=== PATIENT | male | born 1985 | race American Indian/Alaskan Native ===

== ENCOUNTER 2017-11-02 17:12 | Emergency (ER) | payer OTHER ==
[2017-11-02] MEDS ORDERED: NACL 0.9% 1000 ML 1,000 ML IV ONE (17:50)
[2017-11-02 18:12] LABS: Hematocrit 43.1 % (35.5-45.6); Hemoglobin 14.1 gm/dl (11.8-15.2); Mean Corpuscular HGB Conc 33 % (32-34); Mean Corpuscular Hemoglobin 28 pg (28-32); Mean Corpuscular Volume 85 fl (84-94); Platelet Count 246 K/mm3 (140-440); Red Blood Count 5.11 M/mm3 (3.65-5.03); Red Cell Distribution Width 13.2 % (13.2-15.2); White Blood Count 6.1 K/mm3 (4.5-11.0)
[2017-11-02 18:25] LABS: INR 1.13 (0.87-1.13); Partial Thromboplastin Time 33.9 Sec. (24.2-36.6)
[2017-11-02 18:41] LABS: Alanine Aminotransferase 12 units/L (7-56); Albumin 4.2 g/dL (3.9-5); Albumin/Globulin Ratio 1.1 %; Alkaline Phosphatase 70 units/L (35-129); Anion Gap 16 mmol/L; BUN/Creatinine Ratio 8; Blood Urea Nitrogen 9 mg/dL (9-20); Calcium 9.8 mg/dL (8.4-10.2); Carbon Dioxide 26 mmol/L (22-30); Chloride 97.5 mmol/L (98-107); Glucose 82 mg/dL (75-100); Lipase 26 units/L (13-60); Potassium 3.9 mmol/L (3.6-5.0); Sodium 136 mmol/L (137-145); Total Protein 7.9 g/dL (6.3-8.2)
[2017-11-02 19:48] LABS: Blastocytes % (Manual) 0 %
[2017-11-02 19:49] LABS: Diff Status Complete; Elliptocytes 1+
[2017-11-02] MEDS ORDERED: HEPARIN ONE (20:44)
[2017-11-03] MEDS ORDERED: NACL 0.9% 1000 ML 1,000 ML ONE (00:53)
[2017-11-03] MEDS ORDERED: PROTONIX IV ONE (01:48)
[2017-11-03] MEDS ORDERED: ALUM-MAG HYDROX-SIMETH 200-200-20MG/5ML PO ONE (01:48)
--- NOTE | 2017-11-03 01:53 | Emergency Department Report ---
ED Abdominal Pain HPI - General Chief Complaint: GI Bleed Stated Complaint: BLOOD IN STOOL Time Seen by Provider: 11/03/17 01:40 Source: patient Mode of arrival: Ambulatory Limitations: No Limitations - History of Present Illness Initial Comments: Patient is 32 years old male with no significant past medical history came with his epigastric pain has been going on for a month that since yesterday he had one episode of bloody bowel movement. Patient stated that he noticed this pain is worse when he eats spicy food. Pain relieved with antacids medication. Patient denied any vomiting blood or passing dark stool. MD Complaint: abdominal pain -: month(s) Location: epigastric Radiation: none Severity scale (0 -10): 10 Quality: burning Consistency: intermittent Worsens With: eating Associated Symptoms: denies other symptoms, hematochezia. denies: hematemesis - Related Data Home Medications Medication Instructions Recorded Confirmed Last Taken No Known Home Medications [No 11/03/17 11/03/17 Unknown Reported Home Medications] Allergies Allergy/AdvReac Type Severity Reaction Status Date / Time No Known Allergies Allergy Verified 11/02/17 17:50 ED Review of Systems ROS: Stated complaint: BLOOD IN STOOL Other details as noted in HPI Comment: All other systems reviewed and negative Constitutional: denies: chills, fever Respiratory: denies: cough, shortness of breath, SOB with exertion, SOB at rest Cardiovascular: denies: chest pain, palpitations, dyspnea on exertion Gastrointestinal: abdominal pain. denies: nausea, vomiting, diarrhea, constipation, hematemesis Musculoskeletal: denies: back pain Skin: denies: rash, lesions Neurological: denies: headache, weakness ED Past Medical Hx - Past Medical History Previous Medical History?: No - Surgical History Past Surgical History?: No - Social History Smoking Status: Current Every Day Smoker Substance Use Type: Alcohol - Medications Home Medications: Home Medications Medication Instructions Recorded Confirmed Last Taken Type No Known Home Medications [No 11/03/17 11/03/17 Unknown History Reported Home Medications] ED Physical Exam - General Limitations: No Limitations General appearance: alert, in no apparent distress - Head Head exam: Present: normocephalic - Eye Eye exam: Present: normal appearance, PERRL - ENT ENT exam: Present: normal exam, normal orophraynx - Neck Neck exam: Present: normal inspection, full ROM. Absent: tenderness, meningismus, lymphadenopathy - Respiratory Respiratory exam: Present: normal lung sounds bilaterally. Absent: respiratory distress, wheezes, rales, rhonchi, chest wall tenderness - Cardiovascular Cardiovascular Exam: Present: regular rate, normal rhythm, normal heart sounds - GI/Abdominal GI/Abdominal exam: Present: soft, tenderness (epigastric), normal bowel sounds. Absent: distended, guarding, rebound, rigid, diminished bowel sounds, organomegaly, mass, bruit, pulsatile mass, hernia - Rectal Rectal exam: Present: deferred - Extremities Exam Extremities exam: Present: normal inspection, full ROM, normal capillary refill - Back Exam Back exam: Present: normal inspection - Neurological Exam Neurological exam: Present: alert, oriented X3, CN II-XII intact, normal gait - Skin Skin exam: Present: warm, intact, normal color. Absent: cyanosis, diaphoretic, erythema ED Course Vital Signs 11/02/17 11/02/17 11/03/17 17:47 22:44 00:54 Temperature 98.7 F 98.1 F Pulse Rate 59 L 53 L Respiratory 16 18 18 Rate Blood Pressure 101/83 122/60 O2 Sat by Pulse 99 100 100 Oximetry - Reevaluation(s) Reevaluation #1: 11/03/17 01:53 Patient did not have any bloody bowel movement in the ER. ED Medical Decision Making - Lab Data Result diagrams: 11/02/17 17:51 11/02/17 17:51 Critical care attestation.: If time is entered above; I have spent that time in minutes in the direct care of this critically ill patient, excluding procedure time. ED Disposition Clinical Impression: GI bleed, Abdominal pain, Gastritis Disposition: -01 TO HOME OR SELFCARE Is pt being admited?: No Condition: Stable Instructions: Gastritis (ED), Diet for Ulcers and Gastritis (ED) Referrals: PRIMARY CARE, [Primary Care Provider] - 3-5 Days
[2017-11-03 02:34] VITALS: BP 111/73
== END 2017-11-03 02:34 | disposition home or self-care (01) ==
LOC: ED 17:12
DX: K92.2 Gastrointestinal hemorrhage, unspecified (principal); F17.200 Nicotine dependence, unspecified, uncomplicated
CPT/HCPCS: 36415; 80053; 83690; 85007; 85025; 85610; 85730; 86850; 86900; 86901; 93005; 93010; 96361; 96374; 99284; C9113; J1644; J7030

== ENCOUNTER 2018-06-10 18:04 | Emergency (ER) | payer SELFPAY ==
[2018-06-10] MEDS ORDERED: TYLENOL ONE (18:22)
[2018-06-10 18:24] VITALS: BP 115/76
[2018-06-10] MEDS ORDERED: TYLENOL PO ONE (18:24)
== END 2018-06-11 00:10 | disposition left against medical advice (07) ==
LOC: ED 18:04
DX: K08.89 Other specified disorders of teeth and supporting structures (principal); R51 Headache; Z53.21 Procedure and treatment not carried out due to patient leaving prior to being seen by health care provider

== ENCOUNTER 2018-07-25 20:33 | Emergency (ER) | payer SELFPAY ==
[2018-07-25 21:47] VITALS: BP 137/77
[2018-07-26] MEDS ORDERED: CIPRODEX AD ONE (00:23)
[2018-07-26] MEDS ORDERED: MOTRIN PO ONE (00:24)
--- NOTE | 2018-07-26 00:29 | Emergency Department Report ---
ED ENT HPI - General Chief complaint: Earache Stated complaint: EAR BLEEDING Time Seen by Provider: 07/25/18 23:47 Source: patient Mode of arrival: Ambulatory Limitations: No Limitations - History of Present Illness Initial comments: 33-year-old -[place] male presents with emergency room for right ear pain 2-3 weeks. Patient reports that today he had onset of bleeding. Patient reports is leaking water for the last 2-3 weeks. Turned yellowish then it started to bleed today. Patient reports that he is here and muffled to the right ear. Patient denies any injury but reports that he went swimming 2-3 weeks ago. She reports that he has a history of swimmer's ear. He reports that there is ear pain. Foul discharge coming from the right ear. Patient reports he has not taken any pain for the discomfort. He also reports that he has bilateral lower third molars that have just broken apart. He complains of gingiva swelling and tooth pain. She reports no past medical history currently takes no medications on a daily basis and has no known drug allergies. MD complaint: ear pain -: week(s) (3) Location: R ear Severity: severe Severity scale (0 -10): 8 Quality: aching Consistency: constant Improves with: none Context- Ear: recent swimming Associated Symptoms: gum swelling, hearing loss, discharge from ear - Related Data Previous Rx's Medication Instructions Recorded Last Taken Type Esomeprazole Magnesium [NexIUM] 40 mg PO QDAY #30 capsule. 11/03/17 Unknown Rx Sucralfate 1 gm PO TID #120 tablet 11/03/17 Unknown Rx Amoxicillin [Amoxicillin TAB] 875 mg PO BID #20 tablet 07/26/18 Unknown Rx Ibuprofen [Motrin 600 MG tab] 600 mg PO ONCE #15 tablet 07/26/18 Unknown Rx Allergies Allergy/AdvReac Type Severity Reaction Status Date / Time No Known Allergies Allergy Verified 11/02/17 17:50 ED Dental HPI - General Chief complaint: Earache Stated complaint: EAR BLEEDING Time Seen by Provider: 07/25/18 23:47 Source: patient Mode of arrival: Ambulatory Limitations: No Limitations - Related Data Previous Rx's Medication Instructions Recorded Last Taken Type Esomeprazole Magnesium [NexIUM] 40 mg PO QDAY #30 capsule. 11/03/17 Unknown Rx Sucralfate 1 gm PO TID #120 tablet 11/03/17 Unknown Rx Amoxicillin [Amoxicillin TAB] 875 mg PO BID #20 tablet 07/26/18 Unknown Rx Ibuprofen [Motrin 600 MG tab] 600 mg PO ONCE #15 tablet 07/26/18 Unknown Rx Allergies Allergy/AdvReac Type Severity Reaction Status Date / Time No Known Allergies Allergy Verified 11/02/17 17:50 ED Review of Systems ROS: Stated complaint: EAR BLEEDING Other details as noted in HPI Comment: All other systems reviewed and negative Constitutional: denies: chills, fever ENT: ear pain, dental pain, other (purulent , bloody discharge from right ear) ED Past Medical Hx - Past Medical History Previous Medical History?: No - Surgical History Past Surgical History?: No - Social History Smoking Status: Never Smoker Substance Use Type: None - Medications Home Medications: Home Medications Medication Instructions Recorded Confirmed Last Taken Type Esomeprazole Magnesium [NexIUM] 40 mg PO QDAY #30 capsule. 11/03/17 Unknown Rx Sucralfate 1 gm PO TID #120 tablet 11/03/17 Unknown Rx Amoxicillin [Amoxicillin TAB] 875 mg PO BID #20 tablet 07/26/18 Unknown Rx Ibuprofen [Motrin 600 MG tab] 600 mg PO ONCE #15 tablet 07/26/18 Unknown Rx ED Physical Exam - General Limitations: No Limitations General appearance: alert, in no apparent distress - Head Head exam: Present: atraumatic, normocephalic - Eye Eye exam: Present: EOMI - Expanded ENT Exam Expanded TM/Canal exam: Erythema: Right TM, Canal Discharge: Right TM, Canal Tenderness: Right TM Mouth exam: Present: other (right lower jaw tenderness) Teeth exam: Present: dental tenderness # (32,17), gingival enlargement - Neck Neck exam: Present: normal inspection, full ROM. Absent: lymphadenopathy ED Course Vital Signs 07/25/18 21:41 Temperature 98.3 F Pulse Rate 72 Respiratory 18 Rate Blood Pressure 137/77 O2 Sat by Pulse 98 Oximetry - Procedure Description Procedures done: Ear wick placed in right ear with Ciprodex antibiotic drops. Patient tolerated it well ED Medical Decision Making - Medical Decision Making Patient has been evaluated by this provider fast track. Ibuprofen order for pain management Ciprodex has been ordered for pharmacy will place an ear wick in the right ear. Would discharge patient with continuing of the Ciprodex that would be given to the patient from pharmacy as well as amoxicillin for dental abscess. We'll discharge patient with ibuprofen 600 mg every 8 hours as needed for pain. Referral for dentist. H and verbalized understanding Critical care attestation.: If time is entered above; I have spent that time in minutes in the direct care of this critically ill patient, excluding procedure time. ED Disposition Clinical Impression: Dental abscess Otitis externa of right ear Qualifiers: Otitis externa type: swimmer's ear Chronicity: acute Qualified Code(s): H60.331 - Swimmer's ear, right ear Disposition: DC-01 TO HOME OR SELFCARE Is pt being admited?: No Does the pt Need Aspirin: No Condition: Stable Instructions: Dental Abscess (ED), Otitis Externa (ED) Additional Instructions: Complete oral antibiotics as prescribed. Please use 4 drops to right ear twice a day for 7 days with the Ciprodex that has been given to you from the ER.. Please follow-up with the dentist I have given you a handout of several dentists. Take pain medication as needed. Prescriptions: Amoxicillin [Amoxicillin TAB] 875 mg PO BID #20 tablet Ibuprofen [Motrin 600 MG tab] 600 mg PO ONCE #15 tablet Referrals: PRIMARY CARE, [Primary Care Provider] - 3-5 Days Forms: Work/School Release Form(ED)
== END 2018-07-26 01:27 | disposition home or self-care (01) ==
LOC: ED 20:33
DX: H60.331 Swimmer's ear, right ear (principal); K04.7 Periapical abscess without sinus
CPT/HCPCS: 99283

== ENCOUNTER 2021-01-07 06:28 | Emergency (ER) | payer SELFPAY ==
[2021-01-07 07:40] LABS: Basophils # (Auto) 0.1 K/mm3 (0.0-0.1); Basophils % (Auto) 0.8 % (0.0-1.8); Eosinophils # (Auto) 0.2 K/mm3 (0.0-0.4); Eosinophils % (Auto) 2.8 % (0.0-4.3); Hematocrit 45.5 % (35.5-45.6); Lymphocytes # (Auto) 2.5 K/mm3 (1.2-5.4); Lymphocytes % (Auto) 36.3 % (13.4-35.0); Mean Corpuscular HGB Conc 33 % (32-34); Mean Corpuscular Volume 85 fl (84-94); Monocytes # (Auto) 0.7 K/mm3 (0.0-0.8); Monocytes % (Auto) 10.4 % (0.0-7.3); Platelet Count 275 K/mm3 (140-440); Red Blood Count 5.35 M/mm3 (3.65-5.03); Red Cell Distribution Width 12.9 % (13.2-15.2)
[2021-01-07 07:53] LABS: Alanine Aminotransferase 14 units/L (7-56); Albumin 4.6 g/dL (3.9-5); BUN/Creatinine Ratio 7; Blood Urea Nitrogen 8 mg/dL (9-20); Calcium 9.9 mg/dL (8.4-10.2); Hemolysis Index 31
[2021-01-07 08:46] VITALS: BP 125/75
--- NOTE | 2021-01-07 08:59 | Emergency Department Report ---
ED General Adult HPI - General Chief complaint: Abdominal Pain Stated complaint: ABD PAIN,EAR INFECTION Time Seen by Provider: 01/07/21 08:51 Source: patient Mode of arrival: Ambulatory Limitations: No Limitations - History of Present Illness Initial comments: 35-year-old states my right ear "smells like a body. I know it is infected." He has had symptoms of right ear discomfort and odor for 3 weeks. He has not sought medical attention. He states that his abdominal pain is chronic and secondary to "reflux". He states he has been previously told to take Nexium which he does not. He states the abdominal pain was precipitated by eating a pizza last week. He does not complain of diarrhea. He has had no signs of hematemesis or melena. He denies fever or chills. He does admit to drinking alcohol prior to his abdominal discomfort as well. -: Gradual, week(s) Location: abdomen (Epigastric), right (Here) Radiation: non-radiation Severity scale (0 -10): 0 Quality: aching Consistency: intermittent Improves with: none Worsens with: none Associated Symptoms: denies other symptoms Treatments Prior to Arrival: none - Related Data Previous Rx's Medication Instructions Recorded Last Taken Type Esomeprazole Magnesium [NexIUM] 40 mg PO QDAY #30 capsule. 11/03/17 Unknown Rx Sucralfate 1 gm PO TID #120 tablet 11/03/17 Unknown Rx Amoxicillin [Amoxicillin TAB] 875 mg PO BID #20 tablet 07/26/18 Unknown Rx Ibuprofen [Motrin 600 MG tab] 600 mg PO ONCE #15 tablet 07/26/18 Unknown Rx Lansoprazole [Prevacid] 15 mg PO BID #30 cap 01/07/21 Unknown Rx Sulfamethoxazole/Trimethoprim 1 each PO BID #14 tablet 01/07/21 Unknown Rx [Bactrim DS TAB] Allergies Allergy/AdvReac Type Severity Reaction Status Date / Time No Known Allergies Allergy Verified 11/02/17 17:50 ED Review of Systems ROS: Stated complaint: ABD PAIN,EAR INFECTION Other details as noted in HPI Constitutional: denies: chills, fever Eyes: as per HPI. denies: eye pain, eye discharge, vision change ENT: denies: ear pain, throat pain Respiratory: wheezing. denies: cough, shortness of breath Cardiovascular: denies: chest pain, palpitations Endocrine: no symptoms reported Gastrointestinal: abdominal pain, vomiting (Vomited once last week). denies: nausea, diarrhea, hematemesis, melena, hematochezia Genitourinary: denies: urgency, dysuria Musculoskeletal: denies: back pain, joint swelling, arthralgia Skin: denies: rash, lesions Neurological: denies: headache, weakness, paresthesias Psychiatric: denies: anxiety, depression Hematological/Lymphatic: denies: easy bleeding, easy bruising ED Past Medical Hx - Past Medical History Previous Medical History?: No - Surgical History Past Surgical History?: No - Social History Smoking Status: Current Every Day Smoker Substance Use Type: Alcohol - Medications Home Medications: Home Medications Medication Instructions Recorded Confirmed Last Taken Type Esomeprazole Magnesium [NexIUM] 40 mg PO QDAY #30 capsule.dr 11/03/17 Unknown Rx Sucralfate 1 gm PO TID #120 tablet 11/03/17 Unknown Rx Amoxicillin [Amoxicillin TAB] 875 mg PO BID #20 tablet 07/26/18 Unknown Rx Ibuprofen [Motrin 600 MG tab] 600 mg PO ONCE #15 tablet 07/26/18 Unknown Rx Lansoprazole [Prevacid] 15 mg PO BID #30 cap 01/07/21 Unknown Rx Sulfamethoxazole/Trimethoprim 1 each PO BID #14 tablet 01/07/21 Unknown Rx [Bactrim DS TAB] ED Physical Exam - General Limitations: No Limitations General appearance: alert, in no apparent distress - Head Head exam: Present: atraumatic, normocephalic - Eye Eye exam: Present: normal appearance - ENT ENT exam: Present: mucous membranes moist, other (Left TM normal, right TM cloudy slightly bulging) - Neck Neck exam: Present: normal inspection. Absent: tenderness, meningismus - Respiratory Respiratory exam: Present: normal lung sounds bilaterally. Absent: respiratory distress - Cardiovascular Cardiovascular Exam: Present: regular rate, normal rhythm. Absent: systolic murmur, diastolic murmur, rubs, gallop - GI/Abdominal GI/Abdominal exam: Present: soft, normal bowel sounds. Absent: distended, tenderness, guarding, rebound, rigid, organomegaly, mass, bruit, pulsatile mass, hernia - Rectal Rectal exam: Present: deferred - Extremities Exam Extremities exam: Present: normal inspection - Back Exam Back exam: Present: normal inspection - Neurological Exam Neurological exam: Present: alert, oriented X3, CN II-XII intact. Absent: motor sensory deficit - Psychiatric Psychiatric exam: Present: normal affect, normal mood - Skin Skin exam: Present: warm, dry, intact, normal color. Absent: rash ED Course Vital Signs 01/07/21 01/07/21 01/07/21 06:40 06:42 08:45 Temperature 98.4 F Pulse Rate 56 L 72 Respiratory 18 18 Rate Blood Pressure 138/66 Blood Pressure 125/75 [Left] O2 Sat by Pulse 99 100 Oximetry ED Medical Decision Making - Lab Data Result diagrams: 01/07/21 06:57 01/07/21 06:57 Laboratory Results - last 24 hr 01/07/21 01/07/21 06:57 06:57 WBC 7.0 RBC 5.35 H Hgb 15.0 Hct 45.5 MCV 85 MCH 28 MCHC 33 RDW 12.9 L Plt Count 275 Lymph % (Auto) 36.3 H [place] % (Auto) 10.4 H Eos % (Auto) 2.8 Baso % (Auto) 0.8 Lymph # (Auto) 2.5 [place] # (Auto) 0.7 Eos # (Auto) 0.2 Baso # (Auto) 0.1 Seg Neutrophils % 49.7 Seg Neutrophils # 3.5 Sodium 139 Potassium 4.8 Chloride 99.2 Carbon Dioxide 27 Anion Gap 18 BUN 8 L Creatinine 1.1 Estimated GFR > 60 BUN/Creatinine Ratio 7 Glucose 101 H Calcium 9.9 Total Bilirubin 0.50 AST 16 ALT 14 Alkaline Phosphatase 76 Total Protein 7.6 Albumin 4.6 Albumin/Globulin Ratio 1.5 Lipase 58 Critical care attestation.: If time is entered above; I have spent that time in minutes in the direct care of this critically ill patient, excluding procedure time. ED Disposition Clinical Impression: Right otitis media Qualifiers: Otitis media type: mucoid Chronicity: acute Qualified Code(s): H65.111 - Acute and subacute allergic otitis media (mucoid) (sanguinous) (serous), right ear Abdominal pain Qualifiers: Abdominal location: epigastric Qualified Code(s): R10.13 - Epigastric pain Disposition: -01 TO HOME OR SELFCARE Is pt being admited?: No Does the pt Need Aspirin: No Condition: Stable Additional Instructions: Avoid stomach irritants like alcohol Advil aspirin and drugs of abuse. Rx as directed. Follow-up at the [facility] return any acute change or worsening. Prescriptions: Sulfamethoxazole/Trimethoprim [Bactrim DS TAB] 1 each PO BID #14 tablet Lansoprazole [Prevacid] 15 mg PO BID #30 cap Referrals: PRIMARY CARE, [Primary Care Provider] - 3-5 Days [facility] [Provider Group] - 3-5 Days Time of Disposition: 09:04
[2021-01-07] MEDS ORDERED: ALUM-MAG HYDROXIDE-SIMETHICONE 200-200-20MG/5ML ORAL LIQD 30 ML PO ONE (09:08)
[2021-01-07] MEDS ORDERED: PANTOPRAZOLE 40 MG TAB PO ONE (09:08)
[2021-01-07 09:43] LABS: Bilirubin,Urine NEG (Negative); Blood,Urine NEG (Negative); Calcium Oxalate Crystals,Urine 1+; Color,Urine Yellow (Yellow); Mucus,Urine 3+ /HPF; Urobilinogen,Urine < 2.0 mg/dL (<2.0); WBC,Urine < 1.0 /HPF (0.0-6.0)
== END 2021-01-07 09:39 | disposition home or self-care (01) ==
LOC: ED 06:28
DX: H66.91 Otitis media, unspecified, right ear (principal); R10.9 Unspecified abdominal pain; F17.200 Nicotine dependence, unspecified, uncomplicated; Z79.899 Other long term (current) drug therapy
CPT/HCPCS: 36415; 80053; 81001; 83690; 85025

== ENCOUNTER 2021-05-07 20:18 | Emergency (ER) | payer SELFPAY ==
[2021-05-08 00:11] VITALS: BP 140/94
== END 2021-05-08 00:30 | disposition home or self-care (01) ==
LOC: ED 20:18
DX: H65.191 Other acute nonsuppurative otitis media, right ear (principal); H60.91 Unspecified otitis externa, right ear; F17.200 Nicotine dependence, unspecified, uncomplicated; Z72.89 Other problems related to lifestyle; Z79.899 Other long term (current) drug therapy
CPT/HCPCS: 99281

== ENCOUNTER 2021-07-23 21:42 | Emergency (ER) | payer OTHER ==
[2021-07-23 23:38] LABS: Bacteria,Urine 2+ /HPF (Negative); Bilirubin,Urine NEG (Negative); Blood,Urine NEG (Negative); Color,Urine Yellow (Yellow); Hyaline Casts,Urine 1 /LPF; Mucus,Urine FEW /HPF; Protein,Urine <15 mg/dL mg/dL (Negative)
[2021-07-23 23:48] LABS: Basophils % (Auto) 0.7 % (0.0-1.8); Eosinophils # (Auto) 0.1 K/mm3 (0.0-0.4); Eosinophils % (Auto) 1.4 % (0.0-4.3); Hematocrit 48.7 % (35.5-45.6); Hemoglobin 16.3 gm/dl (11.8-15.2); Lymphocytes # (Auto) 2.6 K/mm3 (1.2-5.4); Mean Corpuscular HGB Conc 33 % (32-34); Mean Corpuscular Volume 84 fl (84-94); Monocytes # (Auto) 0.8 K/mm3 (0.0-0.8); Monocytes % (Auto) 11.6 % (0.0-7.3); Platelet Count 305 K/mm3 (140-440); Red Blood Count 5.79 M/mm3 (3.65-5.03); Red Cell Distribution Width 12.6 % (13.2-15.2)
[2021-07-24 00:06] LABS: Alanine Aminotransferase 19 units/L (7-56); Albumin 4.4 g/dL (3.9-5); BUN/Creatinine Ratio 7; Blood Urea Nitrogen 9 mg/dL (9-20); Calcium 9.3 mg/dL (8.4-10.2); Hemolysis Index 8
[2021-07-24] MEDS ORDERED: SODIUM CHLORIDE 0.9% 1000 ML 1,000 ML IV ONE (01:46)
[2021-07-24] MEDS ORDERED: ALUM-MAG HYDROXIDE-SIMETHICONE 200-200-20MG/5ML ORAL LIQD 30 ML PO ONE (01:46)
[2021-07-24] MEDS ORDERED: FAMOTIDINE 20 MG/2 ML INJ IV ONE (01:46)
[2021-07-24] MEDS ORDERED: LIDOCAINE VISCOUS 2% 15 ML ORAL LIQD PO ONE (01:46)
[2021-07-24] MEDS ORDERED: ONDANSETRON 4 MG/2 ML INJ IV ONE (01:46)
[2021-07-24] MEDS ORDERED: MORPHINE 4 MG/1 ML INJ IV ONE (01:47)
--- NOTE | 2021-07-24 03:31 | Cat Scan Report ---
CT ABDOMEN AND PELVIS WITH IV CONTRAST INDICATION: Pt complains of abd pain with nausea and vomiting x 1 day. COMPARISON: None available. TECHNIQUE: Axial CT images were obtained through the abdomen and pelvis after 100 mL IV contrast. All CT scans a t this location are performed using CT dose reduction for ALARA by means of automated exposure contro l. FINDINGS -- ABDOMEN: Lung Bases: No acute abnormality. Liver: Normal. Gallbladder: Normal. Bile Ducts: Normal. Pancreas: Normal. Spleen: Normal. Adrenals: Normal. Right Kidney and Proximal Ureter: Normal. Left Kidney and Proximal Ureter: Normal. Stomach and Bowel: Mild prominence of the gastric mucosa as well as the small bowel mucosa.. Lymph Nodes: No significant adenopathy. Aorta: No significant abnormality. IVC: Normal. Additional Findings: None. FINDINGS -- PELVIS: Urinary Bladder and Distal Ureters: Normal. Reproductive Organs: No acute abnormality. Appendix: Not well identified. Bowel: No acute abnormality. Free Fluid: None. Lymph Nodes: No significant adenopathy. Additional Findings: None. Skeletal System: No acute abnormality. IMPRESSION: Findings suspicious for gastroenteritis. Signer Name: John Lunsford MD Signed: 07/24/2021 3:27 AM Workstation Name: [id number]
[2021-07-24 04:26] VITALS: BP 138/70
--- NOTE | 2021-07-24 04:28 | Emergency Department Report ---
ED Abdominal Pain HPI - General Chief Complaint: Abdominal Pain Stated Complaint: STOMACH ULCERS Source: patient Mode of arrival: Ambulatory Limitations: No Limitations - History of Present Illness Initial Comments: Patient is a 36-year-old -[place] male with a history of gastric ulcers who presents to the ED with complaint of acute onset persistent intractable nausea and vomiting and epigastric pain for the last 4 days. Patient states that he has not been able to keep anything down because of persistent nausea and vomiting and worsening epigastric pain. Patient denies fever, chills, dizziness, syncope, chest pain, shortness of breath, cough, sore throat, headac he, diarrhea, dysuria, urinary frequency and urgency, hematemesis, hemoptysis, headache, back pain or change in vision, testicular pain or hematuria. MD Complaint: abdominal pain (epigastric pain), other (Nausea and vomiting) -: Sudden, days(s) (4) Location: epigastric Radiation: none Migration to: periumbilical, epigastric Severity: severe Severity scale (0 -10): 7 Quality: cramping, aching, sharp Consistency: intermittent Improves With: nothing Worsens With: vomiting Context: possible food poisoning Associated Symptoms: denies other symptoms, nausea, vomiting, anorexia. denies: diarrhea, fever, chills, constipation, dysuria, hematemesis, hematochezia, melena, hematuria - Related Data Previous Rx's Medication Instructions Recorded Last Taken Type Sucralfate 1 gm PO TID #120 tablet 11/03/17 Unknown Rx Amoxicillin [Amoxicillin TAB] 875 mg PO BID #20 tablet 07/26/18 Unknown Rx Ibuprofen [Motrin 600 MG tab] 600 mg PO ONCE #15 tablet 07/26/18 Unknown Rx Lansoprazole [Prevacid] 15 mg PO BID #30 cap 01/07/21 Unknown Rx Sulfamethoxazole/Trimethoprim 1 each PO BID #14 tablet 01/07/21 Unknown Rx [Bactrim DS TAB] Clindamycin [Clindamycin CAP] 300 mg PO Q8HR #60 capsule 05/07/21 Unknown Rx Ibuprofen [Motrin] 600 mg PO Q8H PRN #30 tablet 05/07/21 Unknown Rx Ofloxacin 0.3% [Floxin 0.3% Otic] 1 drop OT DAILY #5 ml 05/07/21 Unknown Rx Dicyclomine [Bentyl] 20 mg PO Q6H PRN #30 tablet 07/24/21 Unknown Rx Esomeprazole Magnesium [NexIUM] 40 mg PO QDAY #30 capsule. 07/24/21 Unknown Rx Famotidine [Pepcid] 20 mg PO BID #60 tablet 07/24/21 Unknown Rx Ondansetron [Zofran Odt] 4 mg PO Q6HR PRN #20 tab.rapdis 07/24/21 Unknown Rx Allergies Allergy/AdvReac Type Severity Reaction Status Date / Time No Known Allergies Allergy Verified 11/02/17 17:50 ED Review of Systems ROS: Stated complaint: STOMACH ULCERS Other details as noted in HPI Constitutional: denies: chills, fever Eyes: denies: eye pain, eye discharge, vision change ENT: denies: ear pain, throat pain Respiratory: denies: cough, shortness of breath, wheezing Cardiovascular: denies: chest pain, palpitations Endocrine: no symptoms reported Gastrointestinal: abdominal pain (Epigastric pain), nausea, vomiting. denies: diarrhea Genitourinary: denies: urgency, dysuria Musculoskeletal: denies: back pain, joint swelling, arthralgia Skin: denies: rash, lesions Neurological: denies: headache, weakness, paresthesias Psychiatric: denies: anxiety, depression Hematological/Lymphatic: denies: easy bleeding, easy bruising ED Past Medical Hx - Past Medical History Previous Medical History?: Yes Additional medical history: stomach ulcers - Surgical History Past Surgical History?: No - Social History Smoking Status: Current Every Day Smoker Substance Use Type: Alcohol - Medications Home Medications: Home Medications Medication Instructions Recorded Confirmed Last Taken Type Sucralfate 1 gm PO TID #120 tablet 11/03/17 Unknown Rx Amoxicillin [Amoxicillin TAB] 875 mg PO BID #20 tablet 07/26/18 Unknown Rx Ibuprofen [Motrin 600 MG tab] 600 mg PO ONCE #15 tablet 07/26/18 Unknown Rx Lansoprazole [Prevacid] 15 mg PO BID #30 cap 01/07/21 Unknown Rx Sulfamethoxazole/Trimethoprim 1 each PO BID #14 tablet 01/07/21 Unknown Rx [Bactrim DS TAB] Clindamycin [Clindamycin CAP] 300 mg PO Q8HR #60 capsule 05/07/21 Unknown Rx Ibuprofen [Motrin] 600 mg PO Q8H PRN #30 tablet 05/07/21 Unknown Rx Ofloxacin 0.3% [Floxin 0.3% Otic] 1 drop OT DAILY #5 ml 05/07/21 Unknown Rx Dicyclomine [Bentyl] 20 mg PO Q6H PRN #30 tablet 07/24/21 Unknown Rx Esomeprazole Magnesium [NexIUM] 40 mg PO QDAY #30 capsule. 07/24/21 Unknown Rx Famotidine [Pepcid] 20 mg PO BID #60 tablet 07/24/21 Unknown Rx Ondansetron [Zofran Odt] 4 mg PO Q6HR PRN #20 tab.rapdis 07/24/21 Unknown Rx ED Physical Exam - General Limitations: No Limitations General appearance: alert, in no apparent distress - Head Head exam: Present: atraumatic, normocephalic, normal inspection - Eye Eye exam: Present: normal appearance, PERRL, EOMI Pupils: Present: normal accommodation - ENT ENT exam: Present: normal exam, normal orophraynx, mucous membranes moist, TM's normal bilaterally, normal external ear exam - Neck Neck exam: Present: normal inspection, full ROM - Respiratory Respiratory exam: Present: normal lung sounds bilaterally. Absent: respiratory distress, wheezes, rales, stridor, chest wall tenderness - Cardiovascular Cardiovascular Exam: Present: regular rate, normal rhythm, normal heart sounds. Absent: systolic murmur, diastolic murmur, rubs, gallop - GI/Abdominal GI/Abdominal exam: Present: soft, tenderness (Palpable epigastric tenderness), normal bowel sounds. Absent: guarding, rebound, hyperactive bowel sounds, hypoactive bowel sounds, organomegaly - Extremities Exam Extremities exam: Present: normal inspection, full ROM, normal capillary refill - Back Exam Back exam: Present: normal inspection, full ROM. Absent: tenderness, CVA tenderness (R), CVA tenderness (L), muscle spasm, paraspinal tenderness, vertebral tenderness - Neurological Exam Neurological exam: Present: alert, oriented X3, CN II-XII intact, normal gait, reflexes normal - Psychiatric Psychiatric exam: Present: normal affect, normal mood - Skin Skin exam: Present: warm, dry, intact, normal color. Absent: rash ED Medical Decision Making - Lab Data Result diagrams: 07/23/21 23:31 07/23/21 23:31 - Radiology Data Radiology results: report reviewed, image reviewed [facility] [address] [place] [id number] Cat Scan Report Signed Patient: ZULY COUGHLIN MR#: [id number] : 1985 Acct:[id number] Age/Sex: 36 / M ADM Date: 07/23/21 Loc: ED Attending Dr: Ordering Physician: MICHELLE OSBORNE Date of Service: 07/24/21 Procedure(s): CT abdomen pelvis w con Accession Number(s): [id number] cc: MICHELLE OSBORNE CT ABDOMEN AND PELVIS WITH IV CONTRAST INDICATION: Pt complains of abd pain with nausea and vomiting x 1 day. COMPARISON: None available. TECHNIQUE: Axial CT images were obtained through the abdomen and pelvis after 100 mL IV contrast. All CT scans at this location are performed using CT dose reduction for ALARA by means of automated exposure control. FINDINGS -- ABDOMEN: Lung Bases: No acute abnormality. Liver: Normal. Gallbladder: Normal. Bile Ducts: Normal. Pancreas: Normal. Spleen: Normal. Adrenals: Normal. Right Kidney and Proximal Ureter: Normal. Left Kidney and Proximal Ureter: Normal. Stomach and Bowel: Mild prominence of the gastric mucosa as well as the small bowel mucosa.. Lymph Nodes: No significant adenopathy. Aorta: No significant abnormality. IVC: Normal. Additional Findings: None. FINDINGS -- PELVIS: Urinary Bladder and Distal Ureters: Normal. Reproductive Organs: No acute abnormality. Appendix: Not well identified. Bowel: No acute abnormality. Free Fluid: None. Lymph Nodes: No significant adenopathy. Additional Findings: None. Skeletal System: No acute abnormality. IMPRESSION: Findings suspicious for gastroenteritis. Signer Name: John Lunsford MD Signed: 07/24/2021 3:27 AM Workstation Name: [id number] Transcribed By: Dictated By: John Lunsford MD Electronically Authenticated By: John Lunsford MD Signed Date/Time: 07/24/21326 DD/ 3 TD/TT: - Medical Decision Making This is a 36-year-old -[place] male with a history of gastric ulcers who presents to the ED with complaint of acute onset persistent intractable nausea and vomiting and epigastric pain for the last 4 days. Patient states that he has not been able to keep anything down because of persistent nausea and vomiting and worsening epigastric pain. In the ED, patient is alert and oriented x3 and is not in any distress. Patient is hemodynamically stable. Patient was treated for pain in the ED and also given antiemetics as well as antacids and pain medications. Patient also received normal saline 1 L IV bolus x1. Lab test results were reviewed and are all nonactionable. Abdomen pelvis CT scan with contrast showed findings suspicious for gastroenteritis. On reevaluation, patient's pain is well controlled medications. Patient has not had any nausea or vomiting after being treated with antiemetics and antacids. P atient was therefore advised to maintain a clear liquid diet for 12 to 24 hours, take medication as needed for nausea and vomiting as well as antacids and follow-up with his primary care physician in 5 to 7 days for reevaluation. Patient was advised return to the ED immediately if symptoms get worse. - Differential Diagnosis Viral gastroenteritis; gastritis; GERD; pancreatitis; cholelithiasis Critical care attestation.: If time is entered above; I have spent that time in minutes in the direct care of this critically ill patient, excluding procedure time. ED Disposition Clinical Impression: Epigastric abdominal pain, Viral gastroenteritis, Nausea and vomiting in adult patient GERD (gastroesophageal reflux disease) Qualifiers: Esophagitis presence: esophagitis presence not specified Qualified Code(s): K21.9 - Gastro-esophageal reflux disease without esophagitis Disposition: 01 HOME / SELF CARE / HOMELESS Is pt being admited?: No Does the pt Need Aspirin: No Condition: Stable Instructions: Viral Gastroenteritis, Adult, [id number], Gastroesophageal Reflux Disease, Adult, [id number], Nausea and Vomiting, Adult, [id number] Additional Instructions: All lab test results were reviewed and are all nonactionable. Abdomen pelvis CT scan with contrast showed findings suspicious for gastroenteritis. Therefore maintain a clear liquid diet for 12 to 24 hours, drink plenty of fluids, take medication as needed for nausea and vomiting and antacids as well as pain medications. Follow-up with your primary care physician in 5 to 7 days for reevaluation. Return to the ED immediately if your symptoms get worse. Prescriptions: Dicyclomine [Bentyl] 20 mg PO Q6H PRN #30 tablet PRN Reason: Abdominal pain Esomeprazole Magnesium [NexIUM] 40 mg PO QDAY #30 capsule. Famotidine [Pepcid] 20 mg PO BID #60 tablet Ondansetron [Zofran Odt] 4 mg PO Q6HR PRN #20 tab.rapdis PRN Reason: Nausea And Vomiting Referrals: [facility] [Provider Group] - 7-10 days Forms: Work/School Release Form(ED) Time of Disposition: 04:31 Print Language: IRISH
== END 2021-07-24 04:45 | disposition home or self-care (01) ==
LOC: ED 21:42
DX: A08.4 Viral intestinal infection, unspecified (principal); K21.9 Gastro-esophageal reflux disease without esophagitis; F17.200 Nicotine dependence, unspecified, uncomplicated; Z72.89 Other problems related to lifestyle; Z79.899 Other long term (current) drug therapy
CPT/HCPCS: 36415; 74177; 80053; 81001; 83690; 85025; 96361; 96374; 96375; 99284; J2270; J2405; J7030; Q9967